=== PATIENT | female | born 1965 | race Two or more races ===

== ENCOUNTER 2020-10-08 08:13 | Outpatient (CLI) | payer OTHER | END 2020-10-08 08:28 | disposition home or self-care (01) | LOC: MRI 08:13 | PROVIDERS: ATTEND Neurological Surgery | DX: M48.02 Spinal stenosis, cervical region (principal); M48.06 Spinal stenosis, lumbar region | CPT/HCPCS: 72141 ==

== ENCOUNTER 2025-02-07 09:09 | Day surgery (SDC) | payer OTHER ==
[2025-02-07] MEDS ORDERED: fentaNYL CITRATE 50 MCG/ML AMPUL IV PUSH ONE (14:00)
[2025-02-07] MEDS ORDERED: ONDANSETRON HCL 2 MG/ML VIAL IV ONE (14:00)
[2025-02-07] MEDS ORDERED: MIDAZOLAM HCL 2 MG/2 ML VIAL IV ONE (14:00)
[2025-02-07] MEDS ORDERED: DIPHENHYDRAMINE HCL 50 MG/ML VIAL 1ML IV ONE (14:00)
== END 2025-02-07 15:10 | disposition home or self-care (01) ==
LOC: AMB-ENDOS 09:09
PROVIDERS: ATTEND Colon & Rectal Surgery
DX: D12.4 Benign neoplasm of descending colon (principal); K57.30 Diverticulosis of large intestine without perforation or abscess without bleeding; K63.5 Polyp of colon; R15.9 Full incontinence of feces; Z12.11 Encounter for screening for malignant neoplasm of colon